=== PATIENT | female | born 1970 | race Caucasian/White ===

== ENCOUNTER → 2020-03-13 | Outpatient (CLI) | payer BC ==
[2016-04-18 11:00] VITALS: BP 159/91
[~2020-03-13] MED LIST: ASPI325T8 PO; CALC-274 PO; ESTR2TAB PO; HYDR-2761 PO; HYDR200T71 PO; IBUP-1060 PO; MULT-460 PO; ONDA4TAB10 SL; OXYC1TAB15 PO
--- NOTE | 2020-03-13 08:34 | KCIC ---
Examination: ELBOW LEFT 3V History: Reason: LT ELBOW PAIN ULNAR SIDE X'S 2 YRS, PAIN INCREASING WHILE LOADING WOOD / Comparison/Correlation: None Findings: 3 images of the left elbow were obtained. Joint spaces are normal. No acute fracture or bone erosion. Soft tissues are unremarkable. No joint effusion. No degenerative degenerative change. Impression: Normal left elbow x-ray exam. Electronically signed by: Colton Pichardo MD (03/13/2020 8:31 AM) [id number]
== END ==
LOC: KCIC 08:06
PROVIDERS: ATTEND Family Medicine
DX: M79.602 Pain in left arm (principal)
CPT/HCPCS: 73080

== ENCOUNTER → 2020-08-30 | Outpatient (CLI) | payer BC ==
[2016-04-18 11:00] VITALS: BP 159/91
--- NOTE | 2020-08-30 16:49 | KCIC ---
EXAM: Left foot, 3 views; left ankle, 3 views. HISTORY: Pain. COMPARISON: None. FINDINGS: 3 views of the left foot and ankle are obtained. There is no acute fracture, dislocation or subluxation. There is a small plantar spur. The ankle mortise is intact. There is no osteochondral l esion. There is enthesopathy at the Achilles tendon insertion. IMPRESSION: No acute osseous finding. Electronically signed by: Clotilde Pedraza MD (08/30/2020 4:46 PM) [facility]
== END ==
LOC: KCIC 11:32
PROVIDERS: ATTEND Family Medicine
DX: M77.8 Other enthesopathies, not elsewhere classified (principal); M25.572 Pain in left ankle and joints of left foot
CPT/HCPCS: 73610; 73630

== ENCOUNTER → 2020-10-03 | Outpatient (CLI) | payer BC ==
[2016-04-18 11:00] VITALS: BP 159/91
[~2020-10-03] MED LIST changes: +GADOTERATE 7.5 MMOL/15ML VIAL. IVP ONE
--- NOTE | 2020-10-03 13:15 | KCIC ---
Study: MRI left ankle with and without contrast INDICATION: Ankle injury reported in May 2020. Persisting palpable abnormality at the medial ankl e COMPARISON: 08/30/2020 radiographs TECHNIQUE: Multiplanar MR imaging of the left ankle performed both prior to and after the intravenous administration of 16 cc Clariscan. FINDINGS: Bones/cartilage: No acute or subacute fracture seen at the ankle or involving the visualized foot. Pe riarticular marrow edema at the second TMT joint on a degenerative basis.. Small area of cystic smart e at the medial aspect of the calcaneus at the Achilles insertion, image 20 series 5. No full-thickne ss chondral defect appreciated at the ankle. Small Achilles insertion enthesophyte formation and mild spurring at the plantar calcaneus. Mild chronic spurring at the lateral ankle. Ligaments: No evidence for recent injury of the distal syndesmosis. The ATFL is not well-visualized l ikely relating to prior injury. Thin but intact CFL. Heterogeneous but intact PTFL. Grossly intact de ltoid ligament complex. Intact spring and Lisfranc ligaments. Musculotendinous: Intact and normally located peroneal ligaments. Minimal distal Achilles tendinosis. Intact extensors. A marker is seen at the medial aspect of the ankle overlying the posterior tibial tendon. On the axial postcontrast sequences, a thin focus of increased signal seen along the peripher y of the PTT but no corresponding abnormality is seen on the T2 sequence to suggest this relates to a small partial tear. The flexor tendons are normally located and there is no significant tendon sheat h fluid. Normal bulk and signal of the intrinsic foot musculature. Sinus Tarsi: Mostly maintained fatty signal. A lobulated ganglion cyst along the lateral margin of th e sinus tarsi propagates dorsally to overlie the talar head and extends more medially all the way to the level of the medial malleolus, image 21 series 8. Tarsal tunnel: No space-occupying mass or accessory muscle. Plantar fascia: Mild thickening of the plantar fascia central band and trace edema along its undersur face at the calcaneal origin, image 12 series 4. Miscellaneous: No mass or fluid collection within the superficial soft tissues deep to the external m arker. Scattered small volume joint fluid without a large effusion or synovitis. IMPRESSION: 1. An external marker is seen at the medial ankle denoting the palpable region of concern. This over lies the posterior tibial tendon but there is no high-grade tear of the tendon or tendon displacement to explain the patient's symptoms. No mass or fluid collection within the superficial soft tissues a t this location or acute/subacute osseous abnormality. Note is made that there is a lobulated ganglio n cyst arising from the lateral opening of the sinus tarsi that drapes along the dorsum of the hindfo ot and extends medially to the level of the medial malleolus (see lewis images). This is not immediatel y adjacent to the external marker but still could be palpable. Recommend correlation with physical ex am. 2. No acute ligamentous injury. Probable sequela of previous trauma to the ATFL more so than CFL. 3. Findings which could indicate mild active plantar fasciitis involving the central band at the mars caneal origin. 4. Additional chronic observations outlined in the body the report. Electronically signed by: JACQUIE ELLIOTT MD (10/03/2020 1:12 PM) [id number]
== END ==
LOC: KCIC MRI 10:35
PROVIDERS: ATTEND Podiatrist
DX: M67.462 Ganglion, left knee (principal); M76.62 Achilles tendinitis, left leg
CPT/HCPCS: 73723; 82565; A9575

== ENCOUNTER → 2020-11-30 | Outpatient (CLI) | payer BC ==
[2016-04-18 11:00] VITALS: BP 159/91
[~2020-11-30] MED LIST changes: -GADOTERATE 7.5 MMOL/15ML VIAL. IVP ONE
--- NOTE | 2020-11-30 09:39 | KCIC ---
STUDY: MRI of the left elbow without contrast INDICATION: Medial epicondylitis. COMPARISON: Left elbow radiographs 03/13/2020 TECHNIQUE: Multiplanar MR imaging of the left elbow performed without the use of intravenous or intra -articular contrast. FINDINGS: Degraded study on account of patient motion despite repeat sequence acquisition. Bones/cartilage: Close evaluation of the cartilage is made difficult due to motion but no full-thickn ess defect is apparent. Additionally there is no subchondral marrow edema or cystic change. No marrow edema or enthesophyte formation at the humeral epicondyles. Marrow signal is within normal limits. Musculotendinous: No tear or advanced tendinosis of the common flexor or extensor origins. Mild react linnea soft tissue edema adjacent to the common flexor origin. Intact triceps, biceps brachii and brachi elmo. No muscular edema or fatty infiltration/atrophy. Ligaments: Intact radial collateral ligament, lateral ulnar collateral ligament and annular ligament. Intact ulnar collateral ligament. Nerves: Increased T2 signal of the ulnar nerve just above and within the cubital tunnel. The rest of the nerves at the elbow are unremarkable. Miscellaneous: Normal volume elbow joint fluid. As above, localized subcutaneous edema adjacent to th e cubital tunnel/medial humeral epicondyle. IMPRESSION: Subcutaneous edema adjacent to the cubital tunnel and medial humeral epicondyle. No tear or advanced tendinosis of the common flexor origin. Increased signal of the ulnar nerve within and just above the cubital tunnel. The collective findings suggest mild medial epicondylitis and associated ulnar neuri tis. No significant abnormality elsewhere. Electronically signed by: JACQUIE ELLIOTT MD (11/30/2020 9:33 AM) [id number]
== END ==
LOC: KCIC MRI 08:20
PROVIDERS: ATTEND Physician Assistant
DX: M77.02 Medial epicondylitis, left elbow (principal); M79.89 Other specified soft tissue disorders
CPT/HCPCS: 73221